=== PATIENT | female | born 1955 | race Caucasian/White ===

== ENCOUNTER 2021-08-31 11:50 | Observation (INO) ==
[~2021-08-31 11:50] MED LIST: Buffered Lidocaine 1% SYRIN 1 ml INTRADERM ONE; DiMENhydriNATE IV 50 mg/ml 1 ml VIAL IV PUSH PRN; Lactated Ringers 1000 ml BAG 1,000 ML IV SCH; Naloxone 0.4 mg VIAL 0.4 mg/ml 1 ml VIAL IV PRN; Ondansetron 4 mg VIAL 2 MG/ML 2 ml VIAL IV PRN; diPHENhydraMINE IV 50 MG/ML 1 ml VIAL (BENADRYL) IV PRN
[2021-08-31] MEDS ORDERED: ceFAZolin 1 GM ADVAN 1 GM ADDV.VIAL IVPB ONE ×2 (12:36→12:37)
[2021-08-31] MEDS ORDERED: Lidocaine 1% MPF 5 ML VIAL ONE (12:43)
[2021-08-31] MEDS ORDERED: Bupivacaine 0.5% SDV PF 30ML VIAL ONE (13:42)
[2021-08-31] MEDS ORDERED: Midazolam 2 mg/2 ml VIAL 1 mg/ml 2 ml VIAL (2 mg) ONE ×2 (13:45→13:46)
[2021-08-31] MEDS ORDERED: Dexamethasone IV 4 MG/ML VIAL 1 ml VIAL ONE (13:45)
[2021-08-31] MEDS ORDERED: Ropivacaine 5 MG/ML 20 ML VIAL 0.5% (100 MG) ONE (14:44)
[2021-08-31] MEDS ORDERED: fentaNYL 100 mcg/2 ml 50 MCG/ML VIAL ONE (15:19)
[2021-08-31] MEDS ORDERED: Phenylephrine 40 mcg/mL 10mL (400mcg) SYRINGE ONE (15:42)
[2021-08-31] MEDS ORDERED: Magnesium Hydroxide LIQ 30 ML UDC PO PRN (16:05)
[2021-08-31] MEDS ORDERED: Ondansetron 4 mg VIAL 2 MG/ML 2 ml VIAL IV PRN (16:05)
[2021-08-31] MEDS ORDERED: Ondansetron ODT 4 mg TAB 4 MG TAB PO PRN (16:05)
[2021-08-31] MEDS ORDERED: diPHENhydraMINE 25 mg TAB PO PRN (16:05)
[2021-08-31] MEDS ORDERED: diPHENhydraMINE IV 50 MG/ML 1 ml VIAL (BENADRYL) IV PRN (16:05)
[2021-08-31] MEDS ORDERED: Lactulose 30 ml UDC PO PRN (16:05)
[2021-08-31] MEDS ORDERED: Lactated Ringers 1000 ml BAG 1,000 ML IV SCH (17:00)
[2021-08-31] MEDS ORDERED: Propofol 10 MG/ML 20 ML BTL ONE (17:07)
[2021-08-31] MEDS ORDERED: HYDROmorphone 1 MG/1 ML SYRINGE ONE ×2 (17:50→18:11)
[2021-08-31] MEDS: HYDROmorphone 1 MG/1 ML SYRINGE IV PRN ×2 (18:13→18:31)
[2021-08-31] MEDS: Magnesium Hydroxide LIQ 30 ML UDC PO SCH (20:33)
[2021-08-31] MEDS: ceFAZolin 1 GM ADVAN 1 GM in NS 0.9% 50 ML 50 ML IVPB SCH (23:50)
[2021-09-01 05:40] LABS: Hematocrit 30 % (35-47); Hemoglobin 10.2 g/dL (12.0-16.0); Mean Platelet Volume 7.2 fL (7.4-10.4); Platelet Count 305 10^3/uL (150-450)
[2021-09-01 06:25] LABS: Potassium 4.4 mmol/L (3.5-5.0); eGFR CKD-EPI 97.4 (>60)
[2021-09-01] MEDS: ceFAZolin 1 GM ADVAN 1 GM in NS 0.9% 50 ML 50 ML IVPB SCH ×2 (07:33→15:18)
[2021-09-01] MEDS: Magnesium Hydroxide LIQ 30 ML UDC PO SCH (08:35)
[2021-09-01] MEDS ORDERED: Vitamin THERAPEUTIC TAB PO SCH (09:00)
[2021-09-01] MEDS ORDERED: Pneumococcal Vac 23-Polyvalent IM ONE (09:00)
[2021-09-01 15:21] VITALS: BP 121/54
== END 2021-09-01 16:10 | disposition home or self-care (01) ==
LOC: SSU 11:50 → OR 11:50 → SSU 20:29
PROVIDERS: ADMIT Orthopaedic Surgery Adult Reconstructive Orthopaedic Surgery; ATTEND Orthopaedic Surgery Adult Reconstructive Orthopaedic Surgery